=== PATIENT | female | born 1945 | race Caucasian/White ===

== ENCOUNTER 2022-10-24 19:15 | Emergency (ER) | payer MEDICARE ==
[~2022-10-24] VITALS: Ht 160 cm; Wt 59.0 kg
[2022-10-24] MEDS ORDERED: IV NORMAL SALINE 1000 ML BAG IV ONE (19:30)
[2022-10-24 19:39] LABS: HEMATOCRIT 35.5 % (31.2-41.9); MEAN CORPUSCULAR VOLUME 89.6 fL (75.5-95.3); PLATELET COUNT (AUTO) 251 K/uL (179-408)
[2022-10-24 19:47] LABS: CARBON DIOXIDE 28 mmol/L (21-32); CHLORIDE 101 mmol/L (98-107); GLUCOSE 100 mg/dL (74-106); POTASSIUM 3.2 mmol/L (3.5-5.1); UREA NITROGEN, BLOOD 15 mg/dL (7-18)
[2022-10-24 19:55] LABS: ALANINE AMINOTRANSFERASE 18 U/L (14-59); ALKALINE PHOSPHATASE 89 U/L (50-136); ASPARTATE AMINOTRANSFERASE 12 U/L (15-37); BILIRUBIN,DIRECT 0.2 mg/dL (0.0-0.2); BILIRUBIN,TOTAL 1.3 mg/dL (0.2-1.0); TOTAL PROTEIN, SERUM 6.7 g/dL (6.4-8.2)
[2022-10-24 20:17] LABS: MAGNESIUM 2.1 mg/dL (1.8-2.4)
[2022-10-24] MEDS ORDERED: POTASSIUM BICARBONATE/CIT AC 25 MEQ TABLET.EFF PO ONE (20:45)
[2022-10-24] MEDS ORDERED: CYANOCOBALAMIN 1000 MCG/ML VIAL IM ONE (21:00)
--- NOTE | 2022-10-24 21:09 | NUR ---
Pt's unable to recall names of medications: pt takes a blood pressure medication and something for memory. Needs further follow up.
[2022-10-24] MEDS ORDERED: POTASSIUM BICARBONATE/CIT AC 25 MEQ TABLET.EFF ONE (21:54)
[2022-10-24] MEDS ORDERED: CYANOCOBALAMIN 1000 MCG/ML VIAL ONE (21:55)
[2022-10-24 23:03] LABS: *BILIRUBIN,URIN NEGATIVE (NEGATIVE); *CLARITY,URINE CLEAR (CLEAR); *COLOR,URINE YELLOW (YELLOW); *KETONES,URINE NEGATIVE (NEGATIVE); *UROBILINOGEN,URINE 0.2 E.U./dl (NORMAL); LEUKOCYTE ESTERASE ,URINE TRACE (NEGATIVE); NITRITE, URINE NEGATIVE (NEGATIVE); UGLUCOSE NEGATIVE (NEGATIVE)
[2022-10-24 23:04] LABS: *BLOOD, URINE TRACE (NEGATIVE)
--- NOTE | 2022-10-25 00:13 | NUR ---
patient disharged home per md. accompanied bu significant other. denies dizziness, denies pain.
[2022-10-25 00:54] VITALS: BP 114/76
[2022-10-25 02:27] LABS: BACTERIA,URINE FEW /HPF (NONE SEEN); RBC,URINE 0-3 /HPF (0-3); WBC,URINE 0-3 /HPF (0-3)
[2022-10-25 02:28] LABS: SQUAMOUS EPITHELIAL CELL,UR FEW /HPF (NONE SEEN)
== END 2022-10-25 | disposition home or self-care (01) ==
LOC: ER 19:15
DX: R55 Syncope and collapse (principal); R11.2 Nausea with vomiting, unspecified; E87.6 Hypokalemia; F09 Unspecified mental disorder due to known physiological condition; I44.0 Atrioventricular block, first degree; R94.31 Abnormal electrocardiogram [ECG] [EKG]; Z20.822 Contact with and (suspected) exposure to COVID-19; E87.20 Acidosis, unspecified
CPT/HCPCS: 80076; 80048; 81001; 82607; 83690; 83735; 85025; 85730; 87426; 84484; 36415; 93005; 71045; 70450; 99285; 96360; 96361; 96372; 83605 ×2; 80320; J3420; J7040; A4663; G0480